=== PATIENT | male | born 1990 | race Caucasian/White ===

== ENCOUNTER 2020-03-15 19:19 | Emergency (ER) | payer OTHER, SELFPAY ==
--- NOTE | 2020-03-15 | US_ITS ---
EXAMINATION: US SCROTUM CLINICAL INFORMATION: Testicular pain. COMPARISON: None TECHNIQUE: A sonogram of the scrotum was performed assessing spring-scale appearance and color Doppler flow. Spectral Doppler analysis of the arterial and venous flow were performed in the testes bilaterally. FINDINGS: RIGHT: Right testicle measures 4.8 x 3.2 x 3.3 cm, volume 26 mL. No focal testicular parenchymal lesions are visualized. Spectral Doppler analysis of the arterial and venous flow is normal in the right testis. Right epididymal head is normal in size. No right hydrocele or varicocele is seen. Right epididymal Doppler flow is normal. LEFT: Left testicle measures 4.5 x 2.6 x 3.3 cm, volume 19.9 mL. No focal testicular parenchymal lesions are visualized. Spectral Doppler analysis of the arterial and venous flow is mildly increased in the left testis. Left epididymal head is normal in size. No left hydrocele or varicocele is seen. Left epididymal Doppler flow is normal. US/US scrotum IMPRESSION: Slightly increased intratesticular vascular flow on the left testicle, nonspecific. No intratesticular mass. If patient remain symptomatic consider correlation with follow-up ultrasound in 24 to 48 hours.
[2020-03-15 19:22] VITALS: BP 109/58; PULSE 87; RESP 16; TEMP 36.9; O2SAT 97; BMI 19.5
--- NOTE | 2020-03-15 20:36 | ED.MALEGU ---
HPI - Male Genitourinary General Chief complaint: Urogenital-Male Stated complaint: testicular pain Time Seen by Provider: 03/15/20 20:44 Source: patient Mode of arrival: ambulatory Limitations: no limitations History of Present Illness HPI Narrative: 29-year-old male with no significant past medical history presents with bilateral testicular pain for several days. he states the pain is in both testicles and radiates up into his abdomen, hurts more with testicular movement and pain does not change with lifting or descending the testicles. He Does not report any swelling, trauma, risk for sexually transmitted infection, chest pain or pressure, palpitations, abdominal distention, dysuria, hematuria, urinary hesitancy, weakness, fevers or chills. MD Complaint: testicle pain Onset (ago): day(s) (3) Duration: constant Location: right testicle, left testicle, left inguinal region, left flank and abdomen Severity: moderate Severity scale (1-10): 7 Quality: aching Relieving factors: none Exacerbating factors: movement Associated symptoms: Reports denies other symptoms Related Data Sexually active: Yes ( Sexually active with his , has no other partners) Previous Rx's Medication Instructions Recorded naproxen 500 mg PO BID #30 tab 03/16/20 Allergies Allergy/AdvReac Type Severity Reaction Status Date / Time ibuprofen [IBUPROFEN] AdvReac Unknown PEPTIC Verified 03/15/20 19:21 [facility]LC[facility] Review of Systems Review of Systems: Constitutional: No Fever, No Chills ENT/Mouth: No sore throat Eyes: No Eye Pain, No Swelling, No Redness Cardiovascular: No Chest Pain, No SOB Respiratory: No Cough, No Sputum, No Wheezing Gastrointestinal: no Nausea, no Vomiting, No Diarrhea, positive abdominal pain Genitourinary: bilateral testicular pain, no Dysuria, no urinary frequency, no Hematuria, no Flank Pain, no hesitancy Musculoskeletal: No joint pain, No Myalgias Skin: No Skin Lesions, No rash Neuro: No Weakness, No Numbness, No Headache Psych: No Anxiety/Panic, No Depression Heme/Lymph: No Bruising, No Lymphadenopathy Endocrine: No Polyuria, No Polydipsia Yes all other systems are reviewed and are negative FOR[facility], [facility] Past Medical History Medical History (Updated 03/16/20 @ 00:15 by Sho Ellsworth NP) No known health problems Social History Social History Smoking Status: Never smoker Use of substances other than those prescribed or required for medical reasons: No Advance Directives: No Physical Exam Vital Signs: Vital Signs: Last Vital Signs Temp 98.4 F 03/15/20 19:22 Pulse 64 03/16/20 00:00 Resp 18 03/16/20 00:00 BP 105/68 03/16/20 00:00 Pulse Ox 98 03/16/20 00:00 Body Mass Index 19.5 Appearance: Alert. Oriented X3. mild distress. Eyes: Pupils equal, round and reactive to light. ENT: Pharynx normal. Neck: Normal inspection. Neck supple. CVS: Normal heart rate and rhythm. Pulses normal. Respiratory: No respiratory distress. Breath sounds normal. Abdomen: Soft and nontender. Skin: Skin warm and dry. Normal skin color. Normal skin turgor. : Penis and testicles appear normal, no drainage, lesions, redness, swelling, masses noted to penis or testicles. Pain with both elevation and Descending of testicles. Extremities: No lower extremity edema. Neuro: No motor deficit. No sensory deficit. Course Course Course Narrative: 29-year-old male with no significant medical history presents with testicular pain bilaterally radiating to the left inguinal. This pain has lasted for several days, is an aching pain and has no change when lifting or descending the testicles. He does not have any abnormalities to the penis, abdomen, and does not describe any other symptoms. He does have a significant family history of testicular cancer, his father from metastatic testicular cancer. We will order CBC, Chem 7, urinalysis, GC chlamydia, test, and testicular ultrasound. Labs are unremarkable, test is negative, testicular ultrasound does not show any findings indicate abnormalities. We will order CT scan of abdomen and pelvis. CT scan of abdomen and pelvis are negative, we did not find a reason for his testicular pain, radiology requests repeat ultrasound of the testicles in 24-48 hours, outpatient form filled out by this [employer]. Referral made to Dr. Rowley. Detailed description of discharge instructions given to the patient. translator and interpreter utilized for all correspondence. Google translate utilized for discharge instructions. Patient verbalized understanding of and agrees with plan of care discharge home. MDM - Male Genitourinary MDM Narrative Medical decision making narrative: testicular cancer, varicocele, hydrocele, testicular mass Differential Diagnosis Differential diagnosis: Likely urinary tract infection, urethritis, epididymitis, prostatitis and acute retention of urine Medical Records Attestation: I reviewed the patient's medical records. Lab Data Attestation: I reviewed the patient's lab results. Result diagrams: 03/15/20 21:15 03/15/20 21:14 Labs: Lab Results 03/15/20 03/15/20 03/15/20 Range/Units 21:14 21:14 21:15 WBC 5.7 (4.8-10.8) X10*3/uL RBC 4.58 L (4.60-5.80) X10*6/uL Hgb 14.2 (14.0-18.0) g/dl Hct 41.1 L (42-52) % MCV 89.7 (80-98) fL MCH 31.0 (27.0-33.0) pg MCHC 34.5 (31.0-36.0) g/dl RDW 11.3 (11.0-16.0) % Plt Count 197 (160-400) X10*3/uL MPV 10.2 (9.4-12.4) fL Immature Gran % (Auto) 0.2 (0.0-0.4) % Neut % (Auto) 51.1 (45-73) % Lymph % (Auto) 37.4 (20-40) % Price % (Auto) 9.3 (2-11) % Eos % (Auto) 1.8 (0-4) % Baso % (Auto) 0.2 (0-2) % Lymph # (Auto) 2.1 (1.2-4.9) X10*3/uL Price # (Auto) 0.5 (0.1-1.2) X10*3/uL Eos # (Auto) 0.1 (0.0-0.4) X10*3/uL Baso # (Auto) 0.0 (0.0-0.2) X10*3/uL Abs Immat Gran (auto) 0.01 (0.00-0.03) X10*3/uL Absolute Neuts (auto) 2.9 (2.0-8.3) X10*3/uL Absolute Nucleated RBC 0.000 (0.0-0.012) X10*3/uL Nucleated RBC % (auto) 0.0 (0.0-0.2) /100WBC Sodium 140 (135-145) mmol/L Potassium 3.9 (3.3-5.1) mmol/l Chloride 106 (96-108) mmol/L Carbon Dioxide 26 (22-29) mmol/L Anion Gap 12 (12-20) BUN 21 H (9-16) mg/dL Creatinine 0.96 (0.5-1.4) mg/dL Estim Creat Clear Calc 103.8 Estimated GFR > 60 Random Glucose 89 (60-115) mg/dL Calcium 8.7 (8.4-10.2) mg/dL Urine Color YELLOW Urine Appearance CLEAR Urine pH 6.5 (5.0-8.0) Ur Specific [place] 1.025 (1.005-1.025) Urine Protein NEG (NEG-TRACE) MG/DL Urine Glucose (UA) NEG (NEG) MG/DL Urine Ketones NEG (NEG) MG/DL Urine Blood NEG (NEG) Urine Nitrite NEG (NEG) Ur Leukocyte Esterase NEG (NEG) Urine Test NEGATIVE (NEGATIVE) Imaging Data Scrotal ultrasound: Attestation: I personally reviewed and interpreted this imaging study as follows: Radiologist's impression: EXAMINATION: US SCROTUM CLINICAL INFORMATION: Testicular pain. COMPARISON: None TECHNIQUE: A sonogram of the scrotum was performed assessing spring-scale appearance and color Doppler flow. Spectral Doppler analysis of the arterial and venous flow were performed in the testes bilaterally. FINDINGS: RIGHT: Right testicle measures 4.8 x 3.2 x 3.3 cm, volume 26 mL. No focal testicular parenchymal lesions are visualized. Spectral Doppler analysis of the arterial and venous flow is normal in the right testis. Right epididymal head is normal in size. No right hydrocele or varicocele is seen. Right epididymal Doppler flow is normal. LEFT: Left testicle measures 4.5 x 2.6 x 3.3 cm, volume 19.9 mL. No focal testicular parenchymal lesions are visualized. Spectral Doppler analysis of the arterial and venous flow is mildly increased in the left testis. Left epididymal head is normal in size. No left hydrocele or varicocele is seen. Left epididymal Doppler flow is normal. US/US scrotum doppler IMPRESSION: Slightly increased intratesticular vascular flow on the left testicle, nonspecific. No intratesticular mass. If patient remain symptomatic consider correlation with follow-up ultrasound in [address] scan - abdomen: Attestation: I personally reviewed and interpreted this imaging study as follows: Radiologist's impression: EXAMINATION: CT abdomen pelvis w con CLINICAL INFORMATION: Reason for Exam testicular pain radiating to inguinal and rlq COMPARISON: No prior CT available for comparison. TECHNIQUE: Multidetector volumetric imaging was performed from the superior aspect of the liver through the pubic symphysis 85 mL Omnipaque 350 injected. Sagittal and coronal reformatted images were obtained on the technologist's workstation. This CT examination was performed using dose optimization techniques as appropriate, variously including the following: *Automated exposure control *Adjustment of mA and/or kV according to patient size (this includes techniques or standardized protocols for targeted exams where dose is matched to indication/reason for exam; i.e. extremities or head) *Use of iterative reconstruction technique DLP: 395 mGy-cm FINDINGS: LOWER THORAX: Included lung bases are clear. HEPATOBILIARY: No focal hepatic lesions. No biliary ductal dilatation. GALLBLADDER: Gallbladder unremarkable. SPLEEN: Spleen is normal in size. PANCREAS: No focal mass or ductal dilatation. STOMACH AND GASTROINTESTINAL TRACT: Stomach is grossly unremarkable. There is no bowel distention or thickening. Visualization of the appendix was difficult due to crowding of bowel loops and paucity of intraperitoneal fat, there is however normal air-filled structure in the right lower quadrant felt to represent normal appendix image [address] evidence of inflammation to suggest appendicitis. ADRENALS: No adrenal nodules. KIDNEYS/URETERS: No hydronephrosis, stones or solid mass lesions. URINARY BLADDER: Partially decompressed. PELVIC VISCERA: Unremarkable PERITONEUM: No free air or fluid. LYMPH NODES: No lymphadenopathy. VASCULAR:Abdominal aorta normal in size, no aneurysm found. BONES, ABDOMINAL WALL AND SOFT TISSUES: Age-appropriate changes of the spine and skeletal system, no destructive osteolytic or osteosclerotic bone lesion found CT/CT abdomen pelvis w con IMPRESSION: Visualization of the appendix is rather difficult due to paucity of intraperitoneal fat and crowding of bowel loops, there is however air-filled blind loop to be or structure likely normal appendix identified filled with air. No CT evidence of other secondary signs of appendicitis. CT otherwise normal, no evidence of obstruction. No free air or fluid. No adenopathy. Discharge Plan Discharge Clinical Impression: Pain in both testicles Patient Disposition: Home, Self-Care Instructions: Testicle Pain (ED), Scrotal Pain (ED) Additional Instructions: se le evalu? para el dolor testicular bilateral que irradia a richardson abdomen. la ecograf?a testicular fue negativa para torsi?n, hidrocele o varicocele. La tomograf?a computarizada abdominal es negativa para los hallazgos agudos que necesitan vic intervenci?n emergente en jewels momento. No encontramos vic alicia?n para richardson dolor testicular, sin embargo, dados los antecedentes familiares significativos de c?ncer testicular es muy recomendable que realice un seguimiento con urolog?a en los pr?ximos d?as para jewels dolor testicular. La ecograf?a no mostr? ani?n hallazgo anormal, sin embargo, el radi?logo solicita que usted tenga vic ecograf?a testicular repetida en 24-48 horas si el dolor persiste. Hemos prescrito naproxeno 500 mg 2 veces al d?a. Por favor, tome jewels medicamento alona se indica con los alimentos. Por favor, katiana un seguimiento con el Dr. Rowley, kristyame y katiana vic link ma?jerry. Por favor, indique que el radi?logo solicita que usted tenga vic ecograf?a testicular repetida en 24-48 horas. Alejandra por elegir jewels departamento de emergencias para la evaluaci?n. Por favor, katiana un seguimiento con el m?dico de atenci?n primaria seg?n sea necesario. Regrese al servicio de urgencias para cualquier s?ntoma nuevo, preocupante o que empeore. you were evaluated for bilateral testicular pain radiating to Your abdomen. testicular ultrasound was negative for torsion, hydrocele, or varicocele. Abdominal CT scan negative for acute findings needing emergent intervention at this time. We did not find a reason for your testicular pain, however given the significant family history of testicular cancer it is highly recommended that you follow-up with urology in the next few days for this testicular pain. The ultrasound did not show any abnormal findings however the radiologist requests that you have a repeat testicular ultrasound in 24-48 hours if pain persists. We have prescribed naproxen 500 mg 2 times a day. Please take this medication as directed with food. Please follow-up with Dr. Rowley, call and make an appointment tomorrow. Please state that the radiologist requests that you have a repeat testicular ultrasound in 24-48 hours. Thank you for choosing this emergency department for evaluation. Please follow-up with primary care physician as needed. Return to the emergency department for any new, concerning, or worsening symptoms. Prescriptions: New naproxen 500 mg tablet 500 mg PO BID Qty: 30 RF: 0 Interventions: ED Discharge Assessment Last Done: 03/16/20 00:36 Print Language: Mosotho
--- NOTE | 2020-03-15 20:44 | US_ITS ---
EXAMINATION: US SCROTUM CLINICAL INFORMATION: Testicular pain. COMPARISON: None TECHNIQUE: A sonogram of the scrotum was performed assessing spring-scale appearance and color Doppler flow. Spectral Doppler analysis of the arterial and venous flow were performed in the testes bilaterally. FINDINGS: RIGHT: Right testicle measures 4.8 x 3.2 x 3.3 cm, volume 26 mL. No focal testicular parenchymal lesions are visualized. Spectral Doppler analysis of the arterial and venous flow is normal in the right testis. Right epididymal head is normal in size. No right hydrocele or varicocele is seen. Right epididymal Doppler flow is normal. LEFT: Left testicle measures 4.5 x 2.6 x 3.3 cm, volume 19.9 mL. No focal testicular parenchymal lesions are visualized. Spectral Doppler analysis of the arterial and venous flow is mildly increased in the left testis. Left epididymal head is normal in size. No left hydrocele or varicocele is seen. Left epididymal Doppler flow is normal. US/US scrotum doppler IMPRESSION: Slightly increased intratesticular vascular flow on the left testicle, nonspecific. No intratesticular mass. If patient remain symptomatic consider correlation with follow-up ultrasound in 24 to 48 hours.
[2020-03-15 21:22] LABS: MANUAL DIFF FLAG NO
[2020-03-15 21:23] LABS: Basophils Percent Auto 0.2 % (0-2); Eosinophils Absolute Auto 0.1 X10*3/uL (0.0-0.4); Eosinophils Percent Auto 1.8 % (0-4); Hematocrit 41.1 % (42-52); Hemoglobin 14.2 g/dl (14.0-18.0); Imm Gran Abs Auto 0.01 X10*3/uL (0.00-0.03); Imm Gran Pct Auto 0.2 % (0.0-0.4); Lymphocytes Absolute Auto 2.1 X10*3/uL (1.2-4.9); Lymphocytes Percent Auto 37.4 % (20-40); Mean Corpuscular HGB Conc 34.5 g/dl (31.0-36.0); Mean Corpuscular Volume 89.7 fL (80-98); Mean Platelet Volume 10.2 fL (9.4-12.4); Monocytes Absolute Auto 0.5 X10*3/uL (0.1-1.2); Monocytes Percent Auto 9.3 % (2-11); Neutrophils Absolute Auto 2.9 X10*3/uL (2.0-8.3); Neutrophils Percent Auto 51.1 % (45-73); Platelet Count 197 X10*3/uL (160-400); Red Blood Count 4.58 X10*6/uL (4.60-5.80); Red Cell Distribution Width 11.3 % (11.0-16.0); White Blood Count 5.7 X10*3/uL (4.8-10.8)
[2020-03-15 21:23] LABS: Glucose Urine UA NEG (NEG); Leukocyte Esterase Urine NEG (NEG); Nitrite Urine NEG (NEG); PH 6.5 (5.0-8.0); Specific Gravity - Urine 1.025 (1.005-1.025); Urine Blood NEG (NEG); Urine Ketones NEG (NEG); Urine Protein NEG (NEG-TRACE)
[2020-03-15 21:24] LABS: Appearance Urine CLEAR; Color Urine YELLOW
[2020-03-15 21:25] LABS: UPreg QC Valid YES; Urine Pregnancy NEGATIVE (NEGATIVE)
[2020-03-15 21:51] LABS: Anion Gap 12 (12-20); Blood Urea Nitrogen 21 mg/dL (9-16); Calcium 8.7 mg/dL (8.4-10.2); Carbon Dioxide 26 mmol/L (22-29); Chloride 106 mmol/L (96-108); Creatinine Clr Calc Pharmacy 103.8; Estimated Glomerular Filt Rate > 60; Glucose Random 89 mg/dL (60-115); Potassium 3.9 mmol/l (3.3-5.1); Sodium 140 mmol/L (135-145)
--- NOTE | 2020-03-15 22:35 | CT_ITS ---
EXAMINATION: CT abdomen pelvis w con CLINICAL INFORMATION: Reason for Exam testicular pain radiating to inguinal and rlq COMPARISON: No prior CT available for comparison. TECHNIQUE: Multidetector volumetric imaging was performed from the superior aspect of the liver through the pubic symphysis 85 mL Omnipaque 350 injected. Sagittal and coronal reformatted images were obtained on the technologist's workstation. This CT examination was performed using dose optimization techniques as appropriate, variously including the following: *Automated exposure control *Adjustment of mA and/or kV according to patient size (this includes techniques or standardized protocols for targeted exams where dose is matched to indication/reason for exam; i.e. extremities or head) *Use of iterative reconstruction technique DLP: 395 mGy-cm FINDINGS: LOWER THORAX: Included lung bases are clear. HEPATOBILIARY: No focal hepatic lesions. No biliary ductal dilatation. GALLBLADDER: Gallbladder unremarkable. SPLEEN: Spleen is normal in size. PANCREAS: No focal mass or ductal dilatation. STOMACH AND GASTROINTESTINAL TRACT: Stomach is grossly unremarkable. There is no bowel distention or thickening. Visualization of the appendix was difficult due to crowding of bowel loops and paucity of intraperitoneal fat, there is however normal air-filled structure in the right lower quadrant felt to represent normal appendix image [address] evidence of inflammation to suggest appendicitis. ADRENALS: No adrenal nodules. KIDNEYS/URETERS: No hydronephrosis, stones or solid mass lesions. URINARY BLADDER: Partially decompressed. PELVIC VISCERA: Unremarkable PERITONEUM: No free air or fluid. LYMPH NODES: No lymphadenopathy. VASCULAR:Abdominal aorta normal in size, no aneurysm found. BONES, ABDOMINAL WALL AND SOFT TISSUES: Age-appropriate changes of the spine and skeletal system, no destructive osteolytic or osteosclerotic bone lesion found CT/CT abdomen pelvis w con IMPRESSION: Visualization of the appendix is rather difficult due to paucity of intraperitoneal fat and crowding of bowel loops, there is however air-filled blind loop to be or structure likely normal appendix identified filled with air. No CT evidence of other secondary signs of appendicitis. CT otherwise normal, no evidence of obstruction. No free air or fluid. No adenopathy.
[2020-03-15 22:44] VITALS: BP 109/67; PULSE 64; RESP 18; O2SAT 98
[2020-03-15] MEDS: iohexoL 350 MG/ML 100 ML INFUS..BTL 85 ML IV (23:13)
[2020-03-15] MEDS: Ketorolac Tromethamine 30 MG/ML VIAL IVPUSH (23:19)
[2020-03-16] VITALS: BP 105/68; PULSE 64; RESP 18; O2SAT 98
[2020-03-16 01:13] LABS: CT PCR NOT DETECTED (Not Detect.); NG PCR NOT DETECTED (Not Detect.)
== END 2020-03-16 00:36 | disposition home or self-care (01) ==
PROVIDERS: Nurse Practitioner Family; Emergency Provider Emergency Medicine
DX: N50.819 Testicular pain, unspecified (principal); R10.30 Lower abdominal pain, unspecified; Z79.899 Other long term (current) drug therapy
CPT/HCPCS: 36415; 74177; 76870; 80048; 81003; 81025; 85025; 87491; 87591; 93975; 96374; 99284; J1885; Q9967

== ENCOUNTER → 2020-04-01 13:30 | Outpatient (BNVA) | payer OTHER, SELFPAY | PROVIDERS: PCP Internal Medicine; Visit Provider Urology | DX: R10.31 Right lower quadrant pain (principal); R10.32 Left lower quadrant pain | CPT/HCPCS: 81002; 99202 ==

== ENCOUNTER 2021-03-17 01:59 | Emergency (ER) | payer OTHER, SELFPAY ==
[2021-03-17 02:28] VITALS: BP 115/74; PULSE 96; RESP 18; TEMP 36.6; O2SAT 99; BMI 21.7
== END 2021-03-17 07:11 | disposition left against medical advice (07) ==
PROVIDERS: Emergency Provider Emergency Medicine; PCP Internal Medicine
DX: R11.10 Vomiting, unspecified (principal)
CPT/HCPCS: 99282

== ENCOUNTER 2021-07-26 09:18 | Emergency (ER) | payer OTHER, SELFPAY ==
--- NOTE | 2021-07-26 | ECG_ITS ---
Test Reason : REPEAT Blood Pressure : / mmHG Vent. Rate : 061 BPM Atrial Rate : 061 BPM P-R Int : 184 ms QRS Dur : 090 ms QT Int : 398 ms P-R-T Axes : 081 086 073 degrees QTc Int : 400 ms Sinus rhythm with marked sinus arrhythmia Possible Left atrial enlargement Borderline ECG When compared with ECG of 26-JUL-2021 09:36, CA interval has decreased Referred By: Fabi Anne Electronically Signed By:Cecilio Brown
--- NOTE | ~2021-07-26 | XR_ITS ---
EXAMINATION: XR chest 2V CLINICAL INFORMATION: Reason for Exam chest pain, SOB COMPARISON: 2019 chest x-ray TECHNIQUE: XR chest 2V Lungs and Dannielle: Both lungs are clear. Pleura: Normal. Costophrenic angles are sharp. No pneumothorax. Heart: The heart is normal in size. Mediastinum: The mediastinum is within normal limits.. Bones: Skeletal structures included are normal for patient's age. XR/XR chest 2V IMPRESSION: Normal chest x-ray.
[2021-07-26 09:30] VITALS: BP 115/80; PULSE 70; RESP 18; TEMP 36.8; O2SAT 100; BMI 20.6
--- NOTE | 2021-07-26 09:32 | ECG_ITS ---
Test Reason : SOB Blood Pressure : / mmHG Vent. Rate : 067 BPM Atrial Rate : 067 BPM P-R Int : 216 ms QRS Dur : 094 ms QT Int : 384 ms P-R-T Axes : 081 086 076 degrees QTc Int : 405 ms Sinus rhythm with sinus arrhythmia with 1st degree A-V block Possible Left atrial enlargement ST elevation, consider early repolarization Borderline ECG No previous ECGs available Referred By: Fabi Anne Electronically Signed By:Cecilio Brown
--- NOTE | 2021-07-26 09:33 | ED_ITS ---
HPI - Chest Pain General Chief Complaint: Chest Pain Stated Complaint: Chest pain/SOB Time Seen by Provider: 07/26/21 09:32 Source: patient Mode of arrival: ambulatory Limitations: no limitations History of Present Illness HPI narrative: Patient presents to the emergency department for evaluation of mid sternal chest pain, shortness of breath, intermittent dizziness, generalized fatigue, and nausea with onset last night. He denies sick contacts or exposure to COVID- 19/influenza. He has not been vaccinated for either. He denies fevers, chills, sore throat, palpitations, nausea, vomiting, abdominal pain, diarrhea, constipation, dysuria, urinary frequency. Related Data Previous Rx's Medication Instructions Recorded naproxen 500 mg tablet 500 mg PO BID #30 tab 03/16/20 meloxicam 15 mg tablet (Mobic) 15 mg PO DAILY 30 Days #30 tab 04/01/20 misoprostol 200 mcg tablet 200 mcg PO BID 30 Days #60 tab 04/01/20 Allergies Allergy/AdvReac Type Severity Reaction Status Date / Time ibuprofen [IBUPROFEN] AdvReac Unknown PEPTIC Verified 03/15/20 19:21 [facility] Review of Systems Review of Systems: Constitutional : No Weight loss, No Fever, No Chills ENT/Mouth :? No sore throat, No Rhinorrhea Eyes: No Eye Pain, No Swelling Cardiovascular : pos Chest Pain, pos SOB, no Dyspnea on Exertion, No Orthopnea, No Edema, No Palpitations Respiratory : No Cough, No Sputum Gastrointestinal : pos Nausea, No Vomiting, No Diarrhea, No abdominal Pain, No Hematochezia, No Melena Genitourinary : No Dysuria, No Urinary Frequency Musculoskeletal : No joint pain, No Myalgias, No Joint Swelling Skin : No Skin Lesions, No rash Neuro : No Weakness, No Numbness, No Dizziness, No Headache Psych : No Anxiety/Panic, No Depression Heme/Lymph: No Bruising, No Lymphadenopathy Endocrine : No Polyuria, No Polydipsia Yes all other systems are reviewed and are negative [facility] Past Medical History Attestation statement: The following information was validated with the patient. Source: old records reviewed Medical History No known health problems Social History Social History Advance Directives: No Advance Directives Information Provided: No Physical Exam Vital Signs: Vital Signs: Last Vital Signs Temp 98.2 F 07/26/21 11:16 Pulse 81 07/26/21 11:16 Resp 18 07/26/21 11:16 BP 117/82 07/26/21 11:16 Pulse Ox 100 07/26/21 11:16 BMI result Body Mass Index 20.6 Vital signs have been reviewed as normal and appeared to be correct. Blood pressure normal.? Heart rate normal.? Respiration rate normal. Temperature normal.? Oxygen saturation normal. Appearance: Alert.?Oriented to person, place and time. No acute distress.?Normal affect. Appears fatigued Head: Normocephalic, atraumatic. No head, sinus or TMJ tenderness.? Eyes: Sclera injected, conjunctiva red. PERRL, 3 mm bilaterally. EOMi.?No Ny stagmus. Ears: Bilateral ear canals clear, TM visible with good cone of light.? Nose: Nasal mucosa pink and moist with midline septum, nares patent bilaterall y.? Mouth/ Throat: Oral mucosa pink and moist without lesions. Pharynx without exudate, tonsils symmetric, no adenopathy.? Neck: Normal inspection.? Neck supple.?? CVS: Heart sounds normal. Normal heart rate and rhythm.? Pulses normal.?? Respiratory: No respiratory distress.? Lung sounds clear to auscultation bila terally?? Abdomen: Soft and non-tender. Normoactive bowel sounds. Skin: Skin warm and dry.? Normal skin color.? Extremities: No lower extremity edema.? No calf ttp? Neuro: Moves all extremities spontaneously. Sensation intact bilaterally. CN II- XII intact. No focal neuro deficits. Ambulates with normal steady gait. Course Course Course Narrative: Patient is a 30-year-old male with no significant past medical history presenting for evaluation of chest pain and shortness of breath. He is overall well-appearing, maintaining airway, managing secretions, speaking in clear full sentences, no wheezing, no hoarseness, no trismus, no hypoxia, no tachypnea. Appears to have symptoms consistent with upper respiratory infection. Patient with no risk factors for ACS, however, given chest pain will obtain EKG and tr oponin to evaluate for ischemia. Wells score PE 0, PERC negative, unlikely to be PE. Will obtain some labs including CBC and CMP. COVID-19 and influenza testing. Disposition pending results. Reevaluation(s) Reevaluation #1: CBC is unremarkable, CMP overall unremarkable. COVID-19 and influenza testing are negative. Chest x-ray reveals no acute pathology, no pneumonia, pulmonary congestion. Troponin <3.5, EKG reveals sinus rhythm first-degree AV block, concern for possible right bundle branch block. Obtained repeat EKG, no acute changes and D-dimer is normal therefore unlikely pulmonary embolism. His chest pain may be musculoskeletal in nature, discussed plan of care for discharge home, outpatient follow-up with PCP within 1-2 days, Tylenol and ibuprofen as needed for pain, discussed reasons to return back to the emergency department, patient agrees with plan of care. Time: 12:29 Reevaluation #2: D-Dimer <150, unlikely PE. MDM - Chest Pain Medical Records Data Attestation: I reviewed the patient's medical records. Lab Data Attestation: I reviewed the patient's lab results. Result diagrams: 07/26/21 09:42 07/26/21 09:42 Labs: Lab Results 07/26/21 07/26/21 07/26/21 Range/Units 09:42 09:42 09:42 WBC 5.0 (4.8-10.8) X10*3/uL RBC 4.65 (4.60-5.80) X10*6/uL Hgb 14.5 (14.0-18.0) g/dl Hct 42.1 (42.0-52.0) % MCV 90.5 (80.0-98.0) fL MCH 31.2 (27.0-33.0) pg MCHC 34.4 (31.0-36.0) g/dl RDW 12.0 (11.0-16.0) % Plt Count 221 (160-400) X10*3/uL MPV 9.9 (9.4-12.4) fL Immature Gran % (Auto) 0.2 (0.0-0.4) % Neut % (Auto) 55.2 (45-73) % Lymph % (Auto) 31.7 (20-40) % [place] % (Auto) 10.3 (2-11) % Eos % (Auto) 2.2 (0-4) % Baso % (Auto) 0.4 (0-2) % Lymph # (Auto) 1.6 (1.2-4.9) X10*3/uL [place] # (Auto) 0.5 (0.1-1.2) X10*3/uL Eos # (Auto) 0.1 (0.0-0.4) X10*3/uL Baso # (Auto) 0.0 (0.0-0.2) X10*3/uL Abs Immat Gran (auto) 0.01 (0.00-0.03) X10*3/uL Absolute Neuts (auto) 2.7 (2.0-8.3) x10*3/uL Absolute Nucleated RBC 0.000 (0.0-0.012) X10*3/uL Nucleated RBC % (auto) 0.0 (0.0-0.2) /100WBC D-Dimer High Sensitivty NG/ML Sodium 138 (135-145) mmol/L Potassium 4.1 (3.3-5.1) mmol/L Chloride 106 (96-108) mmol/L Carbon Dioxide 25 (22-29) mmol/L Anion Gap 11 L (12-20) BUN 14 (9-16) mg/dL Creatinine 0.85 (0.5-1.4) mg/dL Estim Creat Clear Calc 122.6 Estimated GFR > 60 Random Glucose 88 (60-115) mg/dL Calcium 9.3 D (8.4-10.2) mg/dL Total Bilirubin 0.6 (0.0-1.0) mg/dL AST 16 (5-37) U/L ALT 18 (0-40) U/L Alkaline Phosphatase 53 (39-117) U/L Troponin I High Sens < 3.5 (<3.5-35.0) ng/L Total Protein 7.1 (6.5-8.0) g/dL Albumin 4.4 (3.5-5.0) g/dL COVID-19 (FRANCIS) (Negative) COVID-19 Clin Com Influenza Type A (ALEJANDRA) (Negative) Influenza Type B (ALEJANDRA) (Negative) Influenza A & B Note 07/26/21 07/26/21 07/26/21 Range/Units 09:42 09:42 11:45 WBC (4.8-10.8) X10*3/uL RBC (4.60-5.80) X10*6/uL Hgb (14.0-18.0) g/dl Hct (42.0-52.0) % MCV (80.0-98.0) fL MCH (27.0-33.0) pg MCHC (31.0-36.0) g/dl RDW (11.0-16.0) % Plt Count (160-400) X10*3/uL MPV (9.4-12.4) fL Immature Gran % (Auto) (0.0-0.4) % Neut % (Auto) (45-73) % Lymph % (Auto) (20-40) % [place] % (Auto) (2-11) % Eos % (Auto) (0-4) % Baso % (Auto) (0-2) % Lymph # (Auto) (1.2-4.9) X10*3/uL [place] # (Auto) (0.1-1.2) X10*3/uL Eos # (Auto) (0.0-0.4) X10*3/uL Baso # (Auto) (0.0-0.2) X10*3/uL Abs Immat Gran (auto) (0.00-0.03) X10*3/uL Absolute Neuts (auto) (2.0-8.3) x10*3/uL Absolute Nucleated RBC (0.0-0.012) X10*3/uL Nucleated RBC % (auto) (0.0-0.2) /100WBC D-Dimer High Sensitivty < 150 NG/ML Sodium (135-145) mmol/L Potassium (3.3-5.1) mmol/L Chloride (96-108) mmol/L Carbon Dioxide (22-29) mmol/L Anion Gap (12-20) BUN (9-16) mg/dL Creatinine (0.5-1.4) mg/dL Estim Creat Clear Calc Estimated GFR Random Glucose (60-115) mg/dL Calcium (8.4-10.2) mg/dL Total Bilirubin (0.0-1.0) mg/dL AST (5-37) U/L ALT (0-40) U/L Alkaline Phosphatase (39-117) U/L Troponin I High Sens (<3.5-35.0) ng/L Total Protein (6.5-8.0) g/dL Albumin (3.5-5.0) g/dL COVID-19 (FRANCIS) Negative (Negative) COVID-19 Clin Com See Note Influenza Type A (ALEJANDRA) Negative (Negative) Influenza Type B (ALEJANDRA) Negative (Negative) Influenza A & B Note See Note Imaging Data Chest x-ray: Radiologist's impression: XR/XR chest 2V IMPRESSION: Normal chest x-ray. ECG Data ECG #1: Attestation: I personally reviewed and interpreted this ECG as follows: ECG interpretation date: 07/26/21 ECG interpretation time: 09:45 Prior ECG tracings: not available for review Interpretation: Rate: 67 Rhythm:? Sinus rhythm with first-degree AV block, RBBB [place]:? Normal Normal P waves.? Prolonged CT interval 216 qTC: 405 prior studies:? None available for review The study has been interpreted contemporaneously by me. Discharge Plan Discharge Clinical Impression: Chest pain of uncertain etiology Patient Disposition: Home, Self-Care Instructions: Chest Pain (ED), Noncardiac Chest Pain (ED) Additional Instructions: Please contact your primary care provider to schedule a follow-up visit within 1-3 days. Return to the emergency department for any new or worsening symptoms or concerns. You may use Tylenol or ibuprofen as needed for your pain Prescriptions: No Action naproxen 500 mg tablet 500 mg PO BID Qty: 30 0RF meloxicam [Mobic] 15 mg tablet 15 mg PO DAILY 30 Days Qty: 30 0RF misoprostol 200 mcg tablet 200 mcg PO BID 30 Days Qty: 60 0RF Rx Instructions: administer with meals Interventions: ED Discharge Assessment Last Done: 07/26/21 13:04 Discharge Date/Time: 07/26/21 13:05
[2021-07-26 09:46] LABS: MANUAL DIFF FLAG NO
[2021-07-26 09:49] LABS: Basophils Percent Auto 0.4 % (0-2); Eosinophils Absolute Auto 0.1 X10*3/uL (0.0-0.4); Eosinophils Percent Auto 2.2 % (0-4); Hematocrit 42.1 % (42.0-52.0); Hemoglobin 14.5 g/dl (14.0-18.0); Imm Gran Abs Auto 0.01 X10*3/uL (0.00-0.03); Imm Gran Pct Auto 0.2 % (0.0-0.4); Lymphocytes Absolute Auto 1.6 X10*3/uL (1.2-4.9); Lymphocytes Percent Auto 31.7 % (20-40); Mean Corpuscular HGB Conc 34.4 g/dl (31.0-36.0); Mean Corpuscular Hemoglobin 31.2 pg (27.0-33.0); Mean Corpuscular Volume 90.5 fL (80.0-98.0); Mean Platelet Volume 9.9 fL (9.4-12.4); Monocytes Absolute Auto 0.5 X10*3/uL (0.1-1.2); Monocytes Percent Auto 10.3 % (2-11); Neutrophils Absolute Auto 2.7 x10*3/uL (2.0-8.3); Neutrophils Percent Auto 55.2 % (45-73); Platelet Count 221 X10*3/uL (160-400); Red Blood Count 4.65 X10*6/uL (4.60-5.80)
[2021-07-26] MEDS: 0.9 % Sodium Chloride 1,000 ML 999 ML IV (09:57)
[2021-07-26 10:02] LABS: COVID-19 Test Negative (Negative); IDNOW Serial# 55D5AD1C
[2021-07-26 10:03] LABS: Influenza A Negative (Negative); Influenza B2 Negative (Negative)
[2021-07-26 10:15] LABS: Alanine Aminotransferase 18 U/L (0-40); Albumin Level 4.4 g/dL (3.5-5.0); Alkaline Phosphatase 53 U/L (39-117); Anion Gap 11 (12-20); Aspartate Amino Transferase 16 U/L (5-37); Bilirubin Total 0.6 mg/dL (0.0-1.0); Blood Urea Nitrogen 14 mg/dL (9-16); Calcium 9.3 mg/dL (8.4-10.2); Carbon Dioxide 25 mmol/L (22-29); Chloride 106 mmol/L (96-108); Creatinine Clr Calc Pharmacy 122.6; Estimated Glomerular Filt Rate > 60; Glucose Random 88 mg/dL (60-115); Potassium 4.1 mmol/L (3.3-5.1); Sodium 138 mmol/L (135-145); Total Protein 7.1 g/dL (6.5-8.0)
[2021-07-26 10:19] LABS: Troponin-I High Sensitivity < 3.5 ng/L (<3.5-35.0)
--- NOTE | 2021-07-26 11:14 | PC.NURSE ---
report obtained from marie, patient a&ox3, manager pulmonary nsr, vss, pt c/o ongoing dizziness, call berger within reach, will continue to monitor.
[2021-07-26 11:16] VITALS: BP 117/82; PULSE 81; RESP 18; TEMP 36.8; O2SAT 100
[2021-07-26 12:06] LABS: D Dimer High Sensitivity < 150 NG/ML
== END 2021-07-26 13:05 | disposition home or self-care (01) ==
PROVIDERS: Nurse Practitioner Family; Emergency Provider Emergency Medicine; PCP Internal Medicine
DX: R07.89 Other chest pain (principal); R06.02 Shortness of breath; R42 Dizziness and giddiness; Z20.822 Contact with and (suspected) exposure to COVID-19; Z79.899 Other long term (current) drug therapy
CPT/HCPCS: 36415; 71046; 80053; 84484; 85025; 85379; 87502; 87635; 93005; 99283; 99284